=== PATIENT | female | born 1975 | race Caucasian/White ===

== ENCOUNTER 2016-05-07 19:54 | Emergency (ER) | payer BC ==
[2016-05-07 20:46] VITALS: BP 124/86
[2016-05-07] MEDS ORDERED: guaiFENesin/CODIEN 100MG-10MG* 5 ML UDC PO ONE ×2 (21:40→21:53)
--- NOTE | 2016-05-07 21:53 | UC ---
Respiratory Complaint HPI - HPI Summary HPI Summary: Patient with a history of bronchitis presents with 1.5 weeks of cough and nasal discharge. She states she has had coughing fits that cause shortness of breath. she denies BONE, abd pain, N/V/C/D. States she is susceptible to sinusitis and gets an infection every year, but she does not feel there is an infection in her sinuses at this point. patient states the congestion is localized behind her mid-sternum. no fever. - History of Current Complaint Chief Complaint: UCGeneralIllness Stated Complaint: COUGH Hx Obtained From: Patient Hx Last Menstrual Period: doesn't get - gets depo shot ?: No Onset/Duration: Gradual Onset Severity Initially: Moderate Severity Currently: Moderate Pain Intensity: 2 Pain Scale Used: 0-10 Numeric Character: Cough: Productive Aggravating Factors: Deep Breaths Associated Signs And Symptoms: Positive: Dyspnea - Risk Factors Pulmonary Embolism Risk Factors: Negative Cardiac Risk Factors: Negative Pseudomonas Risk Factors: Negative Tuberculosis Risk Factors: Negative - Allergies/Home Medications Allergies/Adverse Reactions: Allergies Allergy/AdvReac Type Severity Reaction Status Date / Time Adhesive Tape Allergy Blisters Verified 05/07/16 20:46 Levofloxacin [From Levaquin] Allergy Shortness Verified 05/07/16 20:46 of Breath PMH/Surg Hx/FS Hx/Imm Hx Previously Healthy: Yes Cardiovascular History Of: Reports: Hypertension - Surgical History Surgical History: Yes Surgery Procedure, Year, and Place: ENDOSCOPY - Family History Known Family History: Positive: Unknown - Social History Occupation: Employed Full-time Lives: With Family Alcohol Use: None Substance Use Type: None Smoking Status (MU): Former Smoker Have You Smoked in the Last Year: No When Did the Patient Quit Smoking/Using Tobacco: 2012 - Immunization History Most Recent Influenza Vaccination: Not the Season Review of Systems Constitutional: Negative Skin: Negative Eyes: Negative ENT: Negative Respiratory: Shortness Of Breath, Cough Cardiovascular: Negative Gastrointestinal: Negative Neurovascular: Negative Musculoskeletal: Negative Neurological: Negative All Other Systems Reviewed And Are Negative: Yes Physical Exam Triage Information Reviewed: Yes Appearance: Well-Appearing, No Pain Distress, Well-Nourished Vital Signs: Initial Vital Signs Temp 97.9 F 05/07/16 20:42 Pulse 78 05/07/16 20:42 Resp 16 05/07/16 20:42 BP 124/86 05/07/16 20:42 Pulse Ox 100 05/07/16 20:42 Vital Signs Reviewed: Yes Eye Exam: Normal Eyes: Positive: Conjunctiva Clear ENT Exam: Normal ENT: Positive: Normal ENT inspection Dental Exam: Normal Neck exam: Normal Neck: Positive: Supple, Nontender, No Lymphadenopathy Respiratory Exam: Normal Respiratory: Positive: Chest non-tender, Lungs clear, Normal breath sounds Cardiovascular Exam: Normal Cardiovascular: Positive: RRR Musculoskeletal Exam: Normal Musculoskeletal: Positive: Strength Intact, ROM Intact Neurological Exam: Normal Neurological: Positive: Alert Psychological Exam: Normal Psychological: Positive: Normal Response To Family, Age Appropriate Behavior Skin Exam: Normal Diagnostic Evaluation - Laboratory O2 Sat by Pulse Oximetry: 100 Respiratory Course/Dx - Course Course Of Treatment: patient sent to xray. imaging shows infiltrate of the middle lobe. antibiotics prescribed. cough medication prescribed. prednisone prescribed. follow up precautions given. - Differential Dx/Diagnosis Differential Diagnosis/HQI/PQRI: Asthma, Lower Resp Infection, Sinusitis Provider Diagnoses: pneumonia Discharge - Discharge Plan Condition: Stable Disposition: HOME Prescriptions: Azithromycin TAB* [Zithromax TAB (Z-SARWAT)*] 0 mg PO .Z-SARWAT INSTRUCTIONS #6 tab guaiFENesin/CODIEN 100MG-10MG* [Robitussin AC 100Mg-10Mg*] 10 ml PO Q4H PRN # 200 ml MDD 60 PRN Reason: Cough predniSONE TAB* [Deltasone TAB*] 10 mg PO DAILY #17 tab Patient Education Materials: Bacterial Pneumonia (ED) Referrals: Clinton Hanna MD [Primary Care Provider] - Additional Instructions: drink plenty of fluids. Come back to if symptoms fail to improve or worsen. Take medications as prescribed to you. humidifier, honey, tea and other hot drinks will help
--- NOTE | 2016-05-07 22:03 | RAD ---
INDICATION: Cough for 2 weeks. History of recurrent bronchitis. COMPARISON: None. TECHNIQUE: Dual energy PA and routine lateral views of the chest were obtained. REPORT: Large body habitus limits image quality. Subtle asymmetric alveolar consolidation at the medial RIGHT lower lung zone likely involving the medial segment of the RIGHT middle lobe. Negative for volume loss to favor atelectasis. Clear pleural spaces. Negative for pneumothorax. The heart, pulmonary vasculature, and mediastinal contours are unremarkable. IMPRESSION: Suggestion of a small inflammatory infiltrate at the medial segment of the RIGHT middle lobe. Negative for associated joint effusion.
[2016-05-07] MEDS ORDERED: Azithromycin TAB* 250 MG PO ONE (22:15)
== END 2016-05-07 22:24 | disposition home or self-care (01) ==
LOC: UCEAST 19:54
DX: J18.9 Pneumonia, unspecified organism (principal); Z88.1 Allergy status to other antibiotic agents; Z87.891 Personal history of nicotine dependence
CPT/HCPCS: 71020; 99212; A9270-GY; G0463

== ENCOUNTER 2016-06-16 16:45 | Emergency (ER) | payer SELFPAY ==
[2016-06-16 16:57] VITALS: BP 140/87
--- NOTE | 2016-06-16 17:37 | RAD ---
INDICATION: Right elbow injury COMPARISON: None TECHNIQUE: AP, lateral, and oblique views were obtained. FINDINGS: The bony structures, joint spaces, and soft tissues are normal for age. IMPRESSION: NO ACUTE FRACTURE.
--- NOTE | 2016-06-16 17:59 | UC ---
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 SINCE TIME OF INJURY HAS HAD TINGLING IN RIGHT (5TH AND 4TH ) FINGERS WELL PAIN WITH FLEXION OF RIGHT ELBOW. - History of Current Complaint Chief Complaint: UCUpperExtremity Stated Complaint: ELBOW INJURY Time Seen by Provider: 06/16/16 17:06 Hx Obtained From: Patient Hx Last Menstrual Period: ON DEPOPROVERA Onset/Duration: Minutes, Traumatic, Still Present Severity Initially: Moderate Severity Currently: Moderate Location Of Pain: Is Discrete @ - RIGHT ELBOW, Radiates To - 4TH 5TH FINGERS Character: Dull, Aching Aggravating Factor(s): Movement Alleviating Factor(s): Rest, Ice, Immobilization Associated Signs And Symptoms: Positive: Numbness/Tingling - Allergies/Home Medications Allergies/Adverse Reactions: Allergies Allergy/AdvReac Type Severity Reaction Status Date / Time Adhesive Tape Allergy Blisters Verified 06/16/16 16:57 Levofloxacin [From Levaquin] Allergy Shortness Verified 06/16/16 16:57 of Breath PMH/Surg Hx/FS Hx/Imm Hx Previously Healthy: Yes Cardiovascular History Of: Reports: Hypertension - ONLY ONE TIME WHEN HOSPITALIZED - Surgical History Surgical History: Yes Surgery Procedure, Year, and Place: ENDOSCOPY - Family History Known Family History: Positive: Unknown Negative: Other - JOINT LAXITY - Social History Occupation: Employed Full-time Lives: With Family Alcohol Use: None Substance Use Type: None Smoking Status (MU): Former Smoker Have You Smoked in the Last Year: No When Did the Patient Quit Smoking/Using Tobacco: 2012 - Immunization History Most Recent Influenza Vaccination: Not the Season Review of Systems Constitutional: Negative Skin: Negative Eyes: Negative ENT: Negative Respiratory: Negative Cardiovascular: Negative Gastrointestinal: Negative Genitourinary: Negative Motor: Negative Neurovascular: Negative Musculoskeletal: Arthralgia, Decreased ROM - RIGHT ELBOW FLEXION/EXTENSION, Myalgia Neurological: Negative Psychological: Negative All Other Systems Reviewed And Are Negative: Yes Physical Exam Triage Information Reviewed: Yes Vital Signs: Initial Vital Signs Temp 97.8 F 06/16/16 16:53 Pulse 96 06/16/16 16:53 Resp 16 06/16/16 16:53 BP 140/87 06/16/16 16:53 Pulse Ox 100 06/16/16 16:53 Eye Exam: Normal Eyes: Positive: Conjunctiva Clear ENT Exam: Normal ENT: Positive: Normal ENT inspection, Hearing grossly normal, TMs normal Dental Exam: Normal Neck exam: Normal Neck: Positive: Supple, Nontender. Negative: Nuchal Rigidity, Tenderness @ Respiratory Exam: Normal Respiratory: Positive: Chest non-tender, Lungs clear, Normal breath sounds, No respiratory distress, No accessory muscle use Cardiovascular Exam: Normal Cardiovascular: Positive: RRR, No Murmur, Pulses Normal, Brisk Capillary Refill Abdominal Exam: Normal Musculoskeletal: Positive: No Edema, Strength Limited @ - EXTENSION RIGHT ELBOW , ROM Limited @ - EXTENSION RIGHT ELBOW Neurological Exam: Normal Psychological Exam: Normal Psychological: Positive: Normal Response To Family Skin Exam: Normal Elbow Pain Course/Dx - Differential Dx/Diagnosis Differential Diagnosis/HQI/PQRI: Fracture (Closed), Fracture (Open), Sprain, Strain Provider Diagnoses: RIGHT ELBOW SPRAIN/CONTUSION Discharge - Discharge Plan Condition: Stable Disposition: HOME Patient Education Materials: Contusion in Adults (ED), Elbow Sprain (ED) Forms: *Work Release Referrals: [facility] [Outside] Clinton Hanna MD [Primary Care Provider] -
== END 2016-06-16 18:05 | disposition home or self-care (01) ==
LOC: UCEAST 16:45
DX: S53.401A Unspecified sprain of right elbow, initial encounter (principal); Z88.1 Allergy status to other antibiotic agents; X58.XXXA Exposure to other specified factors, initial encounter
CPT/HCPCS: 99212; G0463

== ENCOUNTER 2017-02-04 16:14 | Emergency (ER) | payer BC ==
[2017-02-04 16:24] VITALS: BP 132/80
--- NOTE | 2017-02-04 16:43 | UC ---
Throat Pain/Nasal Geovanni HPI - History of Current Complaint Chief Complaint: UCRespiratory Stated Complaint: UPPER RESPIRATORY Time Seen by Provider: 02/04/17 16:40 Hx Obtained From: Patient Hx Last Menstrual Period: unknown Onset/Duration: Gradual Onset, Lasting Days Severity: Moderate Cough: Nonproductive Associated Signs & Symptoms: Positive: Sinus Discomfort, Nasal Discharge. Negative: Dysphagia, Fever, Vomiting, Rash - Allergies/Home Medications Allergies/Adverse Reactions: Allergies Allergy/AdvReac Type Severity Reaction Status Date / Time Adhesive Tape Allergy Blisters Verified 02/04/17 16:18 Levofloxacin [From Levaquin] Allergy Shortness Verified 02/04/17 16:18 of Breath Home Medications: Home Medications Fluticasone NASAL SPRAY 50MCG* [Flonase NASAL SPRAY 50MCG*] 2 spray BOTH NARES DAILY 02/04/17 [History Confirmed 02/04/17] PMH/Surg Hx/FS Hx/Imm Hx Previously Healthy: No - prior pneumonia and sinusitis. - Surgical History Surgical History: Yes Surgery Procedure, Year, and Place: ENDOSCOPY - Family History Known Family History: Positive: Unknown Negative: Other - JOINT LAXITY - Social History Alcohol Use: None Substance Use Type: None Smoking Status (MU): Former Smoker Have You Smoked in the Last Year: No When Did the Patient Quit Smoking/Using Tobacco: 2012 - Immunization History Most Recent Influenza Vaccination: Not the Season Review of Systems ENT: Sinus Congestion, Sinus Pain/Tenderness Respiratory: Cough All Other Systems Reviewed And Are Negative: Yes Physical Exam Triage Information Reviewed: Yes Appearance: Well-Appearing, No Pain Distress, Well-Nourished Vital Signs: Initial Vital Signs Temp 99.7 F 02/04/17 16:20 Pulse 105 02/04/17 16:20 Resp 16 02/04/17 16:20 BP 132/80 02/04/17 16:20 Pulse Ox 100 02/04/17 16:20 Vital Signs Reviewed: Yes Eyes: Positive: Conjunctiva Clear ENT: Positive: Pharyngeal erythema, TMs normal. Negative: Tonsillar swelling, Tonsillar exudate, Trismus, Muffled/hoarse voice Neck exam: Normal Neck: Positive: Supple, Nontender, No Lymphadenopathy Respiratory Exam: Normal Respiratory: Positive: Chest non-tender, Lungs clear, Normal breath sounds, No respiratory distress, No accessory muscle use. Negative: Respiratory distress, Decreased breath sounds, Accessory muscle use Cardiovascular Exam: Normal Cardiovascular: Positive: RRR, No Murmur, Pulses Normal, Brisk Capillary Refill Abdomen Description: Positive: Nontender, No Organomegaly, Soft Musculoskeletal: Positive: Strength Intact, ROM Intact, No Edema Neurological: Positive: Alert, Muscle Tone Normal. Negative: Fatigued Psychological Exam: Normal Psychological: Positive: Normal Response To Family, Age Appropriate Behavior Skin Exam: Normal Skin: Negative: rashes Throat Pain/Nasal Course/Dx - Differential Dx/Diagnosis Provider Diagnoses: sinusitis Discharge - Discharge Plan Condition: Good Disposition: HOME Prescriptions: Amoxicillin PO (*) [Amoxicillin 500 MG CAP*] 500 mg PO TID #30 cap Patient Education Materials: Sinusitis (ED) Referrals: Clinton Hanna MD [Primary Care Provider] - If Needed
== END 2017-02-04 16:47 | disposition home or self-care (01) ==
LOC: UCCORT 16:14
DX: J32.9 Chronic sinusitis, unspecified (principal)
CPT/HCPCS: 99212; G0463

== ENCOUNTER 2017-05-18 14:45 | Emergency (ER) | payer BC ==
[2017-05-18] MEDS ORDERED: Ibuprofen TAB* 400 MG PO ONE (17:26)
--- NOTE | 2017-05-18 17:26 | RAD ---
INDICATION: Pain from the right ankle to the right knee after a slip and fall injury the previous day COMPARISON: None. TECHNIQUE: 3 views of the right ankle and 2 views of the right lower leg were obtained. FINDINGS: There is a mild degree of soft tissue swelling overlying the fibular malleolus. The bones are normal alignment. Joint spaces appear maintained. No fracture is seen. There is an enthesophyte noted at the origin the plantar fascia on the calcaneal tubercle. IMPRESSION: MILD DEGREE OF SOFT TISSUE SWELLING OVERLYING THE FIBULAR MALLEOLUS WITHOUT UNDERLYING FRACTURE OR DISLOCATION. If the patient's symptoms persist, follow-up imaging is recommended.
--- NOTE | 2017-05-18 17:26 | UC ---
Lower Extremity/Ankle HPI - HPI Summary HPI Summary: 42 y/o female presents to the urgent care c/o Rt lower leg pain and Rt ankle pain s/p slipping on the ice yesterday. Pt reports she twisted her ankle, but didn't fall. Pain is 7/10 sharp at the lateral side of the ankle with mild swelling and no bruising or redness. She applied ice and took ibuprofen PO yesterday to alleviate symptoms. Pt is able to bear weight .Pt denies fever, SOB , numbness or tingling, chest pain, abdominal pain, N/V/D - History of Current Complaint Chief Complaint: UCLowerExtremity Stated Complaint: RIGHT ANKLE/KNEE INJURY Time Seen by Provider: 05/18/17 17:15 Hx Obtained From: Patient Hx Last Menstrual Period: DEPO Onset/Duration: Gradual Onset, Lasting Days - 1 day Severity Initially: Moderate Severity Currently: Moderate Pain Intensity: 7 Pain Scale Used: 0-10 Numeric Aggravating Factor(s): Ambulation Alleviating Factor(s): Rest, Ice, OTC Meds Able to Bear Weight: Yes - Risk Factors Gout Risk Factors: Negative, Age Over 40 DVT Risk Factors: Negative Septic Arthritis Risk Factor: Negative - Allergies/Home Medications Allergies/Adverse Reactions: Allergies Allergy/AdvReac Type Severity Reaction Status Date / Time Adhesive Tape Allergy Blisters Verified 05/18/17 15:52 Levofloxacin [From Levaquin] Allergy Shortness Verified 05/18/17 15:52 of Breath Home Medications: Home Medications sulfaSALAzine TAB* [Azulfidine TAB*] 500 mg PO BID 05/18/17 [History Confirmed 05/18/17] PMH/Surg Hx/FS Hx/Imm Hx Previously Healthy: Yes Other Endocrine History: Fibromyalgia - Surgical History Surgical History: Yes Surgery Procedure, Year, and Place: ENDOSCOPY - Family History Known Family History: Positive: Cardiac Disease, Hypertension, Diabetes - Social History Occupation: Employed Full-time Lives: With Family Alcohol Use: None Substance Use Type: None Smoking Status (MU): Former Smoker Have You Smoked in the Last Year: No When Did the Patient Quit Smoking/Using Tobacco: 2012 - Immunization History Most Recent Influenza Vaccination: Not the 2013/2014 Season Review of Systems Constitutional: Negative Skin: Negative Eyes: Negative ENT: Negative Respiratory: Negative Cardiovascular: Negative Gastrointestinal: Negative Genitourinary: Negative Motor: Negative Neurovascular: Negative Musculoskeletal: Decreased ROM - RT ankle, Other: - RT ankle and RT lower leg pain s/p twisting ankle Neurological: Negative Psychological: Negative Is Patient Immunocompromised?: No All Other Systems Reviewed And Are Negative: Yes Physical Exam Triage Information Reviewed: Yes Vital Signs: Initial Vital Signs Temp 98.3 F 05/18/17 15:45 Pulse 87 05/18/17 15:45 Resp 20 05/18/17 15:45 BP 145/101 05/18/17 15:45 Pulse Ox 100 05/18/17 15:45 - Additional Comments Vital Signs Reviewed: Yes General: well developed, well nourished female, sitting in the examining table w /o any apparent distress Eyes: Positive: Conjunctiva Clear - PERRLA, EOMI, ENT: Positive: Normal ENT inspection, Hearing grossly normal, Pharynx normal, TMs normal Neck: Positive: Supple, Nontender, No Lymphadenopathy Respiratory: Positive: Chest non-tender, Lungs clear, Normal breath sounds, No respiratory distress Cardiovascular: Positive: RRR, No Murmur, Pulses Normal, Brisk Capillary Refill Abdomen Description: Positive: Nontender, No Organomegaly, Soft. Negative: CVA Tenderness (R), CVA Tenderness (L) Bowel Sounds: Positive: Present Musculoskeletal: - Ankle: Pt is able to bear weight and ambulate w/ mild limping. The R ankle is without obvious asymmetry or deformity when compared to the L ankle. Decreased ROM due to pain. Mild swelling at the lateral malleolus, with tenderness to palpation. No ecchymosis or bruising observed. Tenderness to palpation over the medial malleolus , no swelling observed. Talar tilt test is negative for ligament laxity to valgus or varus stress. Negative anterior drawer. Peroneal nerve is intact with eversion and plantar flexion. Positive sensation over the Rt foot and Rt ankle, positive pulses, capillary refill intact Neurological Exam: Normal Psychological Exam: Normal Skin: warm and dry Lower Extremity Course/Dx - Course Course Of Treatment: 42 y/o female presents to the urgent care c/o Rt lower leg pain and Rt ankle pain s/p slipping on the ice yesterday. Pt reports she twisted her ankle, but didn't fall. Pain is 7/10 sharp at the lateral side of the ankle with mild swelling and no bruising or redness. She applied ice and took ibuprofen PO yesterday to alleviate symptoms.Pt is able to bear weight. Pt denies fever, SOB, numbness or tingling, chest pain, abdominal pain, N/V/D. Hx Obtained.Rt ankle X-ray ordered, Impression: mild degree of Soft tissue swelling at the fibular maaleolar observed, no acute fracture. Pt most likely with a RT ankle Sprain. Pt immobilized with gel ankle splint to , given crutches to avoid weight bearing, Rx Naproxen PO to decrease swelling and pain. Pt advised RICE, and f/u with PCP on orthopedic in 1 week if not improvement of symptoms for further treatment. Pt's BP is elevated today advised to decrease salt in diet, monitor BP and f/u with PCP for further management. Pt understood and agreed and left the clinic ambulating w/ the help of crutches. - Differential Dx/Diagnosis Differential Diagnosis/HQI/PQRI: Arthritis, Contusion, Dislocation, Fracture ( Closed), Sprain, Strain, Tendonitis Provider Diagnoses: 1- RT lower leg and RT ankle pain s/p injury. 2-Rt ankle sprain. 3-Elevated BP w/ Hx of HTN Discharge - Discharge Plan Condition: Stable Disposition: HOME Prescriptions: Naproxen [Naproxen DR 500 MG TAB] 500 mg PO Q8HR #30 tab Patient Education Materials: Ankle Sprain (ED), Low Sodium Diet (ED) Forms: *Work Release Referrals: Clinton Hanna MD [Primary Care Provider] - 1 Week Sabino Tellez MD [Medical Doctor] - 1 Week Additional Instructions: 1-Please take medications as directed to alleviate pain and swelling. 2-Please apply ice, keep your ankle immobilized with the splint. Avoid weight bearing using the crutches 3- Please f/u with Orthopedic Dr Tellez or your PCP in 1 week is not improvement of symptoms for further evaluation and treatment. 4- Your BP is elevated today. please decrease salt in your diet, monitor BP and if it continues to be elevated please f/u with your PCP for further management
[2017-05-18 18:31] VITALS: BP 150/87
== END 2017-05-18 18:20 | disposition home or self-care (01) ==
LOC: UCCORT 14:45
DX: M79.661 Pain in right lower leg (principal); M25.571 Pain in right ankle and joints of right foot; S93.401A Sprain of unspecified ligament of right ankle, initial encounter; W18.40XA Slipping, tripping and stumbling without falling, unspecified, initial encounter; Y93.9 Activity, unspecified; Y92.9 Unspecified place or not applicable; R03.0 Elevated blood-pressure reading, without diagnosis of hypertension; M79.7 Fibromyalgia; Z88.1 Allergy status to other antibiotic agents; Z91.048 Other nonmedicinal substance allergy status; Z87.891 Personal history of nicotine dependence
CPT/HCPCS: 99213; A9270-GY; G0463

== ENCOUNTER 2018-04-22 10:17 | Emergency (ER) | payer BC, OTHER ==
[2018-04-22 10:56] VITALS: BP 150/86
[2018-04-22] MEDS ORDERED: Tetan/Diph/Pertus SYR(Tdap)* 0.5 ML SYR(BOOSTRIX) use SYR IM ONE (11:07)
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
== END 2018-04-22 11:17 | disposition home or self-care (01) ==
LOC: UCCORT 10:17
DX: Y04.8XXA Assault by other bodily force, initial encounter (principal); S00.81XA Abrasion of other part of head, initial encounter; I10 Essential (primary) hypertension; Z87.891 Personal history of nicotine dependence
CPT/HCPCS: 90471; 90715; 99211; G0463

== ENCOUNTER 2019-04-25 12:18 | Day surgery (SDC) | payer BC ==
[~2019-04-25 12:18] MED LIST: Acetaminophen TAB* 325 MG PO ONE; Buffered Lidocaine 1% SYRIN* 1 ML/SYRINGE INTRADERM ONE; Lactated Ringers 1000 ML Bag* 1,000 ML IV SCH
[2019-04-25] MEDS ORDERED: Acetaminophen TAB* 325 MG ONE (12:30)
[2019-04-25] MEDS ORDERED: Bupivacaine 0.25% SDV PF* 10 ML VIAL INJ ONE (13:23)
[2019-04-25] MEDS ORDERED: Naloxone* 0.4 MG/ML 1 ML VIAL IV PRN (13:34)
[2019-04-25] MEDS ORDERED: fentaNYL* 50 MCG/ML 2 ML VIAL (100 MCG VIAL) ONE (13:44)
[2019-04-25] MEDS ORDERED: Midazolam* 1 MG/ML 2 ML VIAL (2 MG) ONE (13:45)
[2019-04-25] MEDS ORDERED: Propofol* 10 MG/ML 20 ML BTL ONE (13:48)
[2019-04-25] MEDS ORDERED: Lidocaine 1% MPF ** 5 ML VIAL ONE (14:12)
[2019-04-25] MEDS ORDERED: Betamethasone INJ* 6 MG/ML 5 ML VIAL (30 MG) ONE (14:12)
[2019-04-25 15:23] VITALS: BP 131/78
--- NOTE | 2019-04-26 03:43 | OP ---
OPERATIVE REPORT: DATE OF OPERATION: 04/25/19 - SDS DATE OF : 79 SURGEON: Jerry Bah MD [employer] PROCESSING CLERK: ARIANA Peguero ANESTHESIOLOGIST: Dr. Diallo. ANESTHESIA: Local MAC. PRE-OP DIAGNOSIS: Right de Quervain's disease. POST-OP DIAGNOSES: 1. Right de Quervain's disease. 2. Right wrist pain. OPERATIVE PROCEDURE: 1. Right de Quervain's release. 2. Right wrist steroid injection with betamethasone. ESTIMATED BLOOD LOSS: 2 mL. COMPLICATIONS: None. FINDINGS: See above and below. DESCRIPTION OF PROCEDURE: Ms. Rahman was seen in the preoperative holding area. The correct side, site, and procedure were identified. We came back to the operating room. The arm was prepped and draped in the usual fashion and a time-out was performed. The arm was exsanguinated with the Esmarch and the tourniquet was inflated to 250 mmHg. I made a 2-cm incision just proximal to the radial styloid. Dissection was carried down. Full-thickness flaps were raised off the tendon sheath. Ragnell retractors were placed. The tendon sheath was released along its dorsal margin. The tenosynovitis was excised. There was an accessory compartment that was released and the septum was excised in its entirety. At this point, everything was looking good. The wound was irrigated out and was closed with some 4-0 Monocryl suture and Steri-Strips. I did take a 25-gauge needle and injected 2 mL of 1% lidocaine and 12 mg of betamethasone into the right wrist joint. A soft dressing was applied and she was taken to the recovery room in stable condition. [id number]/CPS #: [id number] [facility]
== END 2019-04-25 15:20 | disposition home or self-care (01) ==
LOC: OR 12:18
PROVIDERS: ATTEND Orthopaedic Surgery Hand Surgery
PROC: 0LN50ZZ Release Right Lower Arm and Wrist Tendon, Open Approach (ICD-10-PCS; principal; 2019-04-25 14:15)
DX: M65.4 Radial styloid tenosynovitis [de Quervain] (principal); I10 Essential (primary) hypertension; M79.7 Fibromyalgia; Z87.891 Personal history of nicotine dependence; M15.9 Polyosteoarthritis, unspecified; Z88.1 Allergy status to other antibiotic agents
CPT/HCPCS: 81025; A9270-GY; J0702; J2250; J2704; J3010; J3490